=== PATIENT | male | born 1975 | race Caucasian/White ===

== ENCOUNTER 2018-04-18 08:47 | Inpatient (IN) | payer OTHER ==
[2018-04-18 10:32] VITALS: BMI 26.4
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
[2018-04-18] MEDS ORDERED: P-EPHED 60MG/TRIPROLIDI 2.5MG TABLET PO PRN (13:37)
[2018-04-18] MEDS ORDERED: MENTHOL/PHENOL 1 EACH UD MM PRN (13:37)
[2018-04-18] MEDS ORDERED: MAGNESIUM HYDROX 2400MG/30ML ORAL SUSPENSION 30 ML CUP PO PRN (13:37)
[2018-04-18] MEDS ORDERED: MAGNESIUM CITRATE 300 ML BOTTLE PO PRN (13:37)
[2018-04-18] MEDS ORDERED: MAG HYDROX/AL HYDROX/SIMETH 30 ML UNIT-DOSE CUP PO PRN (13:37)
[2018-04-18] MEDS ORDERED: ACETAMINOPHEN 325 MG TABLET (FP) PO PRN (13:37)
[2018-04-18] MEDS ORDERED: IBUPROFEN 400 MG TABLET (FP) PO PRN (13:37)
[2018-04-18] MEDS ORDERED: LOPERAMIDE HCL 2 MG CAPSULE PO PRN (13:37)
[2018-04-18] MEDS ORDERED: guaiFENesin/D-METHORPHAN HB 10 ML UNIT-DOSE CUPS PO PRN (13:37)
[2018-04-18] MEDS ORDERED: diazePAM 5 MG TABLET PO ONE (14:00)
[2018-04-18] MEDS: NICOTINE 21 MG/24 HOURS TOPICAL PATCH TD SCH (15:09)
--- NOTE | 2018-04-18 17:00 | CONSULT ---
[facility] Psychiatric Consult - Data Date of interview: 04/18/18 Admission source: [facility] Identifying data: Patient is a 43 year old [place] male, father of three, domiciled and currently employed. This is patient's first admission to detox at [facility]. Pt. admitted to for alcohol dependence. Substance Abuse History: Smoking Cessation. Smoking history: Current every day smoker. Have you smoked in the past 12 months: Yes. Aproximately how many cigarettes per day: 30. Hx Chewing Tobacco Use: No. Initiated information on smoking cessation: Yes. 'Breaking Loose' booklet given: 04/18/18. - Substance & Tx. History. Hx Alcohol Use: Yes (VODKA). Hx Substance Use: Yes (XANAX/ KLONOPIN). Substance Use Type: Alcohol, Tranquilizers. - Substances Abused. * * Alcohol--vodka. Route: Oral. Frequency: Daily. Amount used: 3 pts. Age of first use: 16. Date of Last Use: 04/18/18. Xanax. Route: Oral. Frequency : 3-6 times per week. Amount used: 6 mg. Age of first use: 42. Date of Last Use: 04/16/18 Medical History: Denies. Psychiatric History: Patient denies h/o psychiatric hospitalization and suicide attempt. Pt. reports receiving seroquel 100mg from [facility] ER. Reports taking most recent dose yesterday and has received Seroquel when admitted to other detox facilities. Pt. denies OPD. Physical/Sexual Abuse/Trauma History: Denies. Mental Status Exam - Mental Status Exam Alert and Oriented to: Time, Place, Person Cognitive Function: Good Patient Appearance: Well Groomed Mood: Hopeful Affect: Mood Congruent Patient Behavior: Appropriate, Cooperative Speech Pattern: Clear, Appropriate Voice Loudness: Normal Thought Process: Intact, Goal Oriented Thought Disorder: Not Present Hallucinations: Denies Suicidal Ideation: Denies Homicidal Ideation: Denies Insight/Judgement: Poor Sleep: Poorly Appetite: Fair Muscle strength/Tone: Normal Gait/Station: Normal Psychiatric Findings - Problem List ([place] 1, 2,3) (1) Cocaine dependence Current Visit: Yes Status: Acute (2) Substance-induced sleep disorder Current Visit: Yes Status: Acute (3) Alcohol dependence with uncomplicated withdrawal Current Visit: Yes Status: Acute (4) Sedative, hypnotic or anxiolytic dependence with withdrawal, uncomplicated Current Visit: Yes Status: Acute (5) Substance induced mood disorder Current Visit: Yes Status: Acute - Initial Treatment Plan Initial Treatment Plan: Psychoeducation provided. Detoxification in progress. Seroquel 100mg qhs ordered. Benefits and side effects discussed. Verbal consent given. Will continue to monitor.
[2018-04-18] MEDS: diazePAM 5 MG TABLET PO PRN (17:24)
[2018-04-18] MEDS ORDERED: MELATONIN 5 MG TABLETS PO PRN (22:00)
[2018-04-18] MEDS: diazePAM 5 MG TABLET PO SCH (22:07)
[2018-04-18] MEDS: THIAMINE HCL 100 MG TABLET (FP) PO SCH (22:07)
[2018-04-18] MEDS: QUEtiapine FUMARATE 100 MG TABLET (FP) PO SCH (22:07)
[2018-04-18 23:24] LABS: URINE APPEARANCE TURBID; URINE BILIRUBIN NEGATIVE (<2.0 mg/dL); URINE COLOR YELLOW; URINE GLUCOSE (UA) NEGATIVE (NEGATIVE); URINE KETONE NEGATIVE (NEGATIVE); URINE LEUK ESTERASE NEGATIVE (NEGATIVE); URINE NITRITE NEGATIVE (NEGATIVE); URINE PROTEIN NEGATIVE (NEGATIVE); URINE UROBILINOGEN NEGATIVE mg/dL (0.2-1.0)
[2018-04-19] MEDS: diazePAM 5 MG TABLET PO SCH ×3 (05:36→22:14)
--- NOTE | 2018-04-19 09:07 | EKG ---
Test Reason : Blood Pressure : / mmHG Vent. Rate : 086 BPM Atrial Rate : 086 BPM P-R Int : 162 ms QRS Dur : 088 ms QT Int : 372 ms P-R-T Axes : 041 032 015 degrees QTc Int : 445 ms NORMAL SINUS RHYTHM NORMAL ECG NO PREVIOUS ECGS AVAILABLE Confirmed by MOY STORM MD ([id number]) on 04/19/2018 9:07:04 AM Referred By: Confirmed By:MOY STORM MD
[2018-04-19 09:51] LABS: HEMATOCRIT 44.7 % (35.4-49); HEMOGLOBIN 15.3 GM/dL (11.7-16.9); MCH 30.3 pg (25.7-33.7); MCHC 34.2 g/dl (32.0-35.9); MEAN CELL VOLUME 88.6 fl (80-96); MEAN PLT VOLUME 8.8 fl (7.5-11.1); PLATELET COUNT 215 K/MM3 (134-434); RBC 5.04 M/mm3 (4.00-5.60); WHITE BLOOD COUNT 7.8 K/mm3 (4.0-10.0)
[2018-04-19 10:21] LABS: ALBUMIN 4.2 g/dl (3.4-5.0); ANION GAP 12 (8-16); BILIRUBIN,TOTAL 0.3 mg/dL (0.2-1.0); BLOOD UREA NITROGEN 15 mg/dL (7-18); CALCIUM 8.5 mg/dL (8.5-10.1); CHLORIDE 105 mmol/L (98-107); CO2 24 mmol/L (21-32); CREATININE 0.9 mg/dL (0.7-1.3); GLUCOSE,RANDOM 89 mg/dL (74-106); POTASSIUM 3.9 mmol/L (3.5-5.1); SGOT/AST 26 U/L (15-37); SGPT/ALT 40 U/L (12-78); SODIUM 141 mmol/L (136-145); TOT PROT 7.5 g/dl (6.4-8.2)
[2018-04-19 10:22] LABS: ALK PHOS 69 U/L (45-117)
[2018-04-19] MEDS: NICOTINE 21 MG/24 HOURS TOPICAL PATCH TD SCH (10:31)
[2018-04-19] MEDS: PRENATAL VITAMINS W/ FOLIC ACID TABLET (FP) PO SCH (10:31)
[2018-04-19] MEDS: diazePAM 5 MG TABLET PO PRN ×2 (10:31→16:21)
[2018-04-19] MEDS: NICOTINE POLACRILEX 4 MG GUM BUC PRN (13:04)
--- NOTE | 2018-04-19 17:28 | PN ---
S CIWA - CIWA Score Nausea/Vomitin-No Nausea/No Vomiting Muscle Tremors: 2 Anxiety: 3 Agitation: 1-Slight > Activity Paroxysmal Sweats: 3 Orientation: 0-Oriented Tacttile Disturbances: 3-Moderate Itch/Numb/Burn Auditory Disturbances: 0-None Visual Disturbances: 2-Mild Sensitivity Headache: 0-None Present CIWA-Ar Total Score: 14 BHS Progress Note (SOAP) Subjective: Tremors, Body Aches, Fatigue, Sweating, Diarrhea. Objective: PATIENT A & O X 3, OBSERVED AMBULATING ON UNIT. NO ACUTE DISTRESS. 04/19/18 17:25 Vital Signs Temperature 97.6 F 04/19/18 13:35 Pulse Rate 81 04/19/18 13:35 Respiratory Rate 18 04/19/18 13:35 Blood Pressure 123/78 04/19/18 13:35 O2 Sat by Pulse Oximetry (%) Laboratory Tests 04/18/18 04/19/18 04/19/18 23:10 05:50 05:50 WBC 7.8 RBC 5.04 Hgb 15.3 Hct 44.7 MCV 88.6 MCH 30.3 MCHC 34.2 RDW 15.0 Plt Count 215 MPV 8.8 Sodium 141 Potassium 3.9 Chloride 105 Carbon Dioxide 24 Anion Gap 12 BUN 15 Creatinine 0.9 Creat Clearance w eGFR > 60 Random Glucose 89 Calcium 8.5 Total Bilirubin 0.3 AST 26 ALT 40 Alkaline Phosphatase 69 Total Protein 7.5 Albumin 4.2 Urine Color Yellow Urine Appearance Turbid Urine pH 5.0 Ur Specific [place] 1.021 Urine Protein Negative Urine Glucose (UA) Negative Urine Ketones Negative Urine Blood Negative Urine Nitrite Negative Urine Bilirubin Negative Urine Urobilinogen Negative Ur Leukocyte Esterase Negative LABS NOTED. RPR RESULT PENDING. 04/19/18 17:27 Assessment: 04/19/18 17:25 WITHDRAWAL SYMPTOMS. Plan: CONTINUE DETOX. INCREASE DAILY PO FLUID INTAKE. PRM MOM FOR CONSTIPATION.
[2018-04-19] MEDS: QUEtiapine FUMARATE 100 MG TABLET (FP) PO SCH (22:14)
[2018-04-19] MEDS: THIAMINE HCL 100 MG TABLET (FP) PO SCH (22:14)
[2018-04-20] MEDS: diazePAM 5 MG TABLET PO PRN ×2 (05:44→18:05)
[2018-04-20] MEDS: NICOTINE 21 MG/24 HOURS TOPICAL PATCH TD SCH (10:20)
[2018-04-20] MEDS: diazePAM 5 MG TABLET PO SCH ×2 (10:20→22:37)
[2018-04-20] MEDS: PRENATAL VITAMINS W/ FOLIC ACID TABLET (FP) PO SCH (10:20)
--- NOTE | 2018-04-20 17:15 | PN ---
[facility] CIWA - CIWA Score Nausea/Vomitin-No Nausea/No Vomiting Muscle Tremors: 3 Anxiety: 4-Mod. Anxious/Guarded Agitation: 4-Moderately Restless Paroxysmal Sweats: 2 Orientation: 0-Oriented Tacttile Disturbances: 2-Mild Itch/Numbness/Burn Auditory Disturbances: 0-None Visual Disturbances: 0-None Headache: 0-None Present CIWA-Ar Total Score: 15 BHS Progress Note (SOAP) Subjective: Tremors, Fatigue, H/A, Sweating. Objective: PATIENT A & O X 3, OBSERVED AMBULATING ON UNIT. NO ACUTE DISTRESS. 04/20/18 17:14 Vital Signs Temperature 97.0 F L 04/20/18 09:49 Pulse Rate 64 04/20/18 09:49 Respiratory Rate 18 04/20/18 09:49 Blood Pressure 110/71 04/20/18 09:49 O2 Sat by Pulse Oximetry (%) Laboratory Tests 04/18/18 04/19/18 04/19/18 23:10 05:50 05:50 WBC 7.8 RBC 5.04 Hgb 15.3 Hct 44.7 MCV 88.6 MCH 30.3 MCHC 34.2 RDW 15.0 Plt Count 215 MPV 8.8 Sodium 141 Potassium 3.9 Chloride 105 Carbon Dioxide 24 Anion Gap 12 BUN 15 Creatinine 0.9 Creat Clearance w eGFR > 60 Random Glucose 89 Calcium 8.5 Total Bilirubin 0.3 AST 26 ALT 40 Alkaline Phosphatase 69 Total Protein 7.5 Albumin 4.2 Urine Color Yellow Urine Appearance Turbid Urine pH 5.0 Ur Specific [place] 1.021 Urine Protein Negative Urine Glucose (UA) Negative Urine Ketones Negative Urine Blood Negative Urine Nitrite Negative Urine Bilirubin Negative Urine Urobilinogen Negative Ur Leukocyte Esterase Negative RPR Titer 04/19/18 05:50 WBC RBC Hgb Hct MCV MCH MCHC RDW Plt Count MPV Sodium Potassium Chloride Carbon Dioxide Anion Gap BUN Creatinine Creat Clearance w eGFR Random Glucose Calcium Total Bilirubin AST ALT Alkaline Phosphatase Total Protein Albumin Urine Color Urine Appearance Urine pH Ur Specific [place] Urine Protein Urine Glucose (UA) Urine Ketones Urine Blood Urine Nitrite Urine Bilirubin Urine Urobilinogen Ur Leukocyte Esterase RPR Titer Nonreactive LABS NOTED. Assessment: 04/20/18 17:14 WITHDRAWAL SYMPTOMS. Plan: CONTINUE DETOX. INCREASE DAILY PO FLUID INTAKE. ENCOURAGE AMBULATION.
[2018-04-20] MEDS: QUEtiapine FUMARATE 100 MG TABLET (FP) PO SCH (22:37)
[2018-04-20] MEDS: THIAMINE HCL 100 MG TABLET (FP) PO SCH (22:37)
[2018-04-21] MEDS: diazePAM 5 MG TABLET PO PRN (05:26)
[2018-04-21] MEDS: PRENATAL VITAMINS W/ FOLIC ACID TABLET (FP) PO SCH (10:38)
[2018-04-21] MEDS: diazePAM 5 MG TABLET PO SCH ×2 (10:38→22:28)
[2018-04-21] MEDS: NICOTINE 21 MG/24 HOURS TOPICAL PATCH TD SCH (10:38)
--- NOTE | 2018-04-21 13:26 | PN ---
BHS Progress Note (SOAP) Subjective: DECREASED WITHDRAWAL SX-SWEATS,ANXIETY,IRRITABILITY. Objective: 04/21/18 13:26 Vital Signs 04/21/18 04/21/18 06:20 09:40 Temperature 97.9 F 97.0 F L Pulse Rate 72 63 Respiratory 18 18 Rate Blood Pressure 105/63 114/69 Laboratory Tests 04/18/18 04/19/18 04/19/18 23:10 05:50 05:50 WBC 7.8 RBC 5.04 Hgb 15.3 Hct 44.7 MCV 88.6 MCH 30.3 MCHC 34.2 RDW 15.0 Plt Count 215 MPV 8.8 Sodium 141 Potassium 3.9 Chloride 105 Carbon Dioxide 24 Anion Gap 12 BUN 15 Creatinine 0.9 Creat Clearance w eGFR > 60 Random Glucose 89 Calcium 8.5 Total Bilirubin 0.3 AST 26 ALT 40 Alkaline Phosphatase 69 Total Protein 7.5 Albumin 4.2 Urine Color Yellow Urine Appearance Turbid Urine pH 5.0 Ur Specific [place] 1.021 Urine Protein Negative Urine Glucose (UA) Negative Urine Ketones Negative Urine Blood Negative Urine Nitrite Negative Urine Bilirubin Negative Urine Urobilinogen Negative Ur Leukocyte Esterase Negative RPR Titer 04/19/18 05:50 WBC RBC Hgb Hct MCV MCH MCHC RDW Plt Count MPV Sodium Potassium Chloride Carbon Dioxide Anion Gap BUN Creatinine Creat Clearance w eGFR Random Glucose Calcium Total Bilirubin AST ALT Alkaline Phosphatase Total Protein Albumin Urine Color Urine Appearance Urine pH Ur Specific [place] Urine Protein Urine Glucose (UA) Urine Ketones Urine Blood Urine Nitrite Urine Bilirubin Urine Urobilinogen Ur Leukocyte Esterase RPR Titer Nonreactive Assessment: 04/21/18 13:26 WITHDRAWAL SX Plan: CONTINUE DETOX
[2018-04-21] MEDS: NICOTINE POLACRILEX 4 MG GUM BUC PRN (14:44)
[2018-04-21] MEDS: hydrOXYzine PAMOATE 50 MG CAPSULE (FP) PO PRN (15:16)
[2018-04-21] MEDS: QUEtiapine FUMARATE 100 MG TABLET (FP) PO SCH (22:28)
[2018-04-21] MEDS: THIAMINE HCL 100 MG TABLET (FP) PO SCH (22:28)
[2018-04-22] MEDS: hydrOXYzine PAMOATE 50 MG CAPSULE (FP) PO PRN (00:22)
[2018-04-22 09:34] VITALS: BP 95/63; PULSE 69; TEMP 98
[2018-04-22] MEDS ORDERED: diazePAM 5 MG TABLET PO SCH (10:00)
[2018-04-22] MEDS: NICOTINE 21 MG/24 HOURS TOPICAL PATCH TD SCH (10:22)
[2018-04-22] MEDS: PRENATAL VITAMINS W/ FOLIC ACID TABLET (FP) PO SCH (10:23)
--- NOTE | 2018-04-22 13:44 | PN ---
S Progress Note (SOAP) Subjective: Denies any complaints Objective: 04/22/18 13:40 A & O x 3 No acute distress noted Vital Signs Temperature 98.0 F 04/22/18 09:33 Pulse Rate 69 04/22/18 09:33 Respiratory Rate 20 04/22/18 09:33 Blood Pressure 95/63 04/22/18 09:33 O2 Sat by Pulse Oximetry (%) Assessment: 04/22/18 13:42 Detox successfully completed Plan: for discharge
--- NOTE | 2018-04-22 13:47 | DS ---
[facility] Detox Discharge Summary Admission Date: 04/18/18 Discharge Date: 04/22/18 - History Additional Comments: pt A & O x 3 For d/c Will do aftercare Rehab as O/P - Physical Exam Results Vital Signs: Vital Signs Temperature 98.0 F 04/22/18 09:33 Pulse Rate 69 04/22/18 09:33 Respiratory Rate 20 04/22/18 09:33 Blood Pressure 95/63 04/22/18 09:33 O2 Sat by Pulse Oximetry (%) Pertinent Admission Physical Exam Findings: withdrawal sx - Treatment Hospital Course: Detox Protocol Followed, Detoxed Safely, Responded well, Discharged Condition Good Patient has Accepted a Rehab Referral to: AA meetings - Medication Discharge Medications: Ambulatory Orders Quetiapine Fumarate [Seroquel] 100 mg PO HS 04/18/18 - Diagnosis (1) Alcohol dependence with uncomplicated withdrawal Status: Acute (2) Cocaine dependence Status: Acute (3) Sedative, hypnotic or anxiolytic dependence with withdrawal, uncomplicated Status: Acute (4) Substance induced mood disorder Status: Acute (5) Substance-induced sleep disorder Status: Acute (6) History of insomnia Status: Chronic - AMA Did Patient Leave Against Medical Advice: No
== END 2018-04-22 12:37 | disposition home or self-care (01) | DRG 774 ==
LOC: YASAS 08:47 → Y3N 13:47
PROVIDERS: ADMIT Family Medicine Addiction Medicine; ATTEND Family Medicine Addiction Medicine
PROC: HZ2ZZZZ Detoxification Services for Substance Abuse Treatment (ICD-10-PCS; principal; 2018-04-18)
DX: F10.230 Alcohol dependence with withdrawal, uncomplicated (principal); F13.230 Sedative, hypnotic or anxiolytic dependence with withdrawal, uncomplicated; F14.20 Cocaine dependence, uncomplicated; F17.210 Nicotine dependence, cigarettes, uncomplicated; F19.24 Other psychoactive substance dependence with psychoactive substance-induced mood disorder; F19.282 Other psychoactive substance dependence with psychoactive substance-induced sleep disorder; G47.00 Insomnia, unspecified; Z88.0 Allergy status to penicillin
CPT/HCPCS: 36415; 80053; 81003; 85027; 86593; 93005; 93010